=== PATIENT | male | born 1940 | race Caucasian/White ===

== ENCOUNTER 2020-09-11 21:53 | Observation (INO) | payer MEDICARE, OTHER ==
[2020-09-11] MEDS ORDERED: Sodium Chloride 0.9% 1,000 ML IV SCH (22:00)
--- NOTE | 2020-09-11 23:12 | EDM.PDOC ---
ED HPI GENERAL MEDICAL PROBLEM - General Chief Complaint: General Stated Complaint: DIZZINESS Time Seen by Provider: 09/11/20 22:15 Source of Information: Reports: Patient History Limitations: Reports: No Limitations - History of Present Illness INITIAL COMMENTS - FREE TEXT/NARRATIVE: patient presented to the ER due to dizziness. He reports that he was having a dinner at a restaurant, and felt dizziness after standing up and had to sit down. Denies feeling CP. Reports that he is visiting here for Fishing, and think that he is a little dehydrated and didn't get enough liquids in. H/o CAD in the past s/p stents placement. last was 4 weeks ago in [place]. Also h/o pacemaker. Patient reports that it was interrogated a couple weeks ago and was normal. No fever or chills. No SOB or abd pain. No N/V. Dizziness lasted for few seconds before it resolved. Upon arrival of the EMS - HR was initially in mid 30's before it went up to 60. Onset: Today - Related Data Allergies Allergy/AdvReac Type Severity Reaction Status Date / Time No Known Allergies Allergy Verified 09/11/20 21:59 Home Meds: Home Meds Carbidopa/Levodopa [Carbidopa-Levodopa 25-100] 2 tab PO TID 09/11/20 [History] Docusate Sodium 100 mg PO DAILY 09/11/20 [History] Docusate Sodium/Sennosides [Senna Plus] 1 each PO DAILY 09/11/20 [History] Fludrocortisone [Fludrocortisone Acetate] 0.1 mg PO DAILY 09/11/20 [History] Simvastatin 40 mg PO DAILY 09/11/20 [History] oxyCODONE HCl/Acetaminophen [Oxycodone-Acetaminophen 5-325] 1 each PO Q6H 09/11/20 [History] Past Medical History HEENT History: Reports: Impaired Vision Cardiovascular History: Reports: OR, Pacemaker, Stents Genitourinary History: Reports: Prostate Disorder Musculoskeletal History: Reports: Arthritis - Past Surgical History HEENT Surgical History: Reports: Cataract Surgery GI Surgical History: Reports: Colonoscopy Social & Family History - Family History Family Medical History: No Pertinent Family History - Tobacco Use Tobacco Use Status *Q: Former Tobacco User Used Tobacco, but Quit: Yes Month/Year Tobacco Last Used: 2000 Second Hand Smoke Exposure: No - Caffeine Use Caffeine Use: Reports: Soda Caffeine Use Comment: Quit drinking coffee approx 5 months ago. Drink approx 12 pack of soda per weeek - Recreational Drug Use Recreational Drug Use: No ED ROS GENERAL - Review of Systems Review Of Systems: See Below Constitutional: Reports: No Symptoms HEENT: Reports: No Symptoms Respiratory: Reports: No Symptoms Cardiovascular: Reports: Lightheadedness. Denies: Chest Pain GI/Abdominal: Reports: No Symptoms Musculoskeletal: Reports: No Symptoms Neurological: Reports: No Symptoms ED EXAM, GENERAL - Physical Exam Exam: See Below Exam Limited By: No Limitations General Appearance: Alert, No Apparent Distress Head: Atraumatic Respiratory/Chest: No Respiratory Distress, Lungs Clear, No Accessory Muscle Use, Chest Non-Tender Cardiovascular: Normal Peripheral Pulses, No Edema GI/Abdominal: Normal Bowel Sounds, Soft, Non-Tender Extremities: Normal Inspection Neurological: Alert, Oriented Course - Vital Signs Last Recorded V/S: Last Vital Signs Temp 36.3 C 09/11/20 21:54 Pulse 85 09/11/20 21:54 Resp 18 09/11/20 21:54 BP 119/79 09/11/20 21:54 Pulse Ox 97 09/11/20 21:54 - Orders/Labs/Meds Orders: Active Orders 24 hr Category Date Time Status EKG Documentation Completion [RC] ASDIRECTED Care 09/11/20 21:54 Active Sodium Chloride 0.9% [Normal Saline] 1,000 ml Med 09/11/20 22:00 Active IV ASDIRECTED Medication Orders Sodium Chloride (Normal Saline) 1,000 mls @ 500 mls/hr IV ASDIRECTED RUBY Last Admin: 09/11/20 22:59 Dose: 500 mls/hr Documented by: TRACEE Labs: Laboratory Tests 09/11/20 09/11/20 Range/Units 22:00 22:00 WBC 8.6 (4.0-11.0) K/uL RBC 4.83 (4.50-6.50) M/uL Hgb 14.7 (13.0-18.0) g/dL Hct 43.2 (40.0-54.0) % MCV 89 (76-96) fL MCH 30.4 (27.0-32.0) pg MCHC 34.0 (31.0-35.0) g/dL RDW 14.8 (11.0-16.0) % Plt Count 152 (150-400) K/uL MPV 10.2 H (6.0-10.0) fL Sodium 140 (136-145) mmol/L Potassium 4.2 (3.5-5.1) mmol/L Chloride 105 (98-107) mmol/L Carbon Dioxide 29.0 (21.0-32.0) mmol/L Anion Gap 10.2 (5.0-15.0) mmol/L BUN 22 (8-26) mg/dL Creatinine 1.38 H (0.70-1.30) mg/dL Est Cr Clr Drug Dosing 47.64 mL/min Estimated GFR (MDRD) 50 L (>60) MLS/MIN BUN/Creatinine Ratio 15.9 (6-25) Glucose 135 H (74-100) mg/dL Calcium 7.9 L (8.5-10.1) mg/dL Phosphorus 3.2 (2.5-4.9) mg/dL Magnesium 2.2 (1.8-2.4) mg/dL Troponin I < 0.017 (0.000-0.060) ng/mL Meds: Medications Generic Name Dose Route Start Last Admin Trade Name Freq PRN Reason Stop Dose Admin Sodium Chloride 1,000 mls @ 500 mls/hr 09/11/20 22:00 09/11/20 22:59 Normal Saline IV 500 mls/hr ASDIRECTED [facility] Administration - Re-Assessments/Exams Free Text/Narrative Re-Assessment/Exam: upon arrival to the ER - patient was connected to a monitor EKG was obtained - showed e/o paced rhythm and some PVCs. labs were ordered - including CBC, BMP and Trop. Mag and Phosp. Labs were significant for elevation in Cr. Trop was normal, mag and Po4 were WNL.. IVF was given to help with dehydration Departure - Departure Time of Disposition: 23:14 Disposition: Refer to Observation Condition: Fair Clinical Impression: Mild dehydration - Discharge Information *PRESCRIPTION DRUG MONITORING PROGRAM REVIEWED*: Not Applicable *COPY OF PRESCRIPTION DRUG MONITORING REPORT IN PATIENT CATHRYN: Not Applicable Sepsis Event Note (ED) - Evaluation Sepsis Screening Result: No Definite Risk - Focused Exam Vital Signs: Vital Signs Temp Pulse Resp BP Pulse Ox 09/11/20 21:54 36.3 C 85 18 119/79 97 - Problem List & Annotations (1) Mild dehydration SNOMED Code(s): 5490633533170 Code(s): E86.0 - DEHYDRATION Status: Acute Priority: Medium (2) TERRIE (acute kidney injury) SNOMED Code(s): 75351962, 77542797 Code(s): N17.9 - ACUTE KIDNEY FAILURE, UNSPECIFIED Status: Acute Priority: Medium (3) Dizziness on standing SNOMED Code(s): 472497098 Code(s): R42 - DIZZINESS AND GIDDINESS Status: Acute Priority: Medium (4) Pacemaker SNOMED Code(s): 023814266 Code(s): Z95.0 - PRESENCE OF CARDIAC PACEMAKER Status: Chronic - Problem List Review Problem List Initiated/Reviewed/Updated: Yes - My Orders Last 24 Hours: My Active Orders 09/11/20 21:54 EKG Documentation Completion [RC] ASDIRECTED 09/11/20 22:00 Sodium Chloride 0.9% [Normal Saline] 1,000 ml IV ASDIRECTED - Assessment/Plan Last 24 Hours: My Active Orders 09/11/20 21:54 EKG Documentation Completion [RC] ASDIRECTED 09/11/20 22:00 Sodium Chloride 0.9% [Normal Saline] 1,000 ml IV ASDIRECTED Plan: due to the h/o dizziness in the setting of h/o CAD and pacemaker - decision was admit the patient to the floor to observation overnight and tele monitor. - patient will be connected to tele. - morning labs and repeat trop - d/c home in the following day if remains asymptomatic. - resume home meds
[2020-09-11] MEDS ORDERED: Acetaminophen/oxyCODONE 325-5 MG Tab PO SCH (23:30)
[2020-09-12] MEDS ORDERED: Acetaminophen/oxyCODONE 325-5 MG Tab PO PRN (01:10)
[2020-09-12] MEDS ORDERED: Lisinopril 5 MG Tab PO ONE (04:30)
[2020-09-12] MEDS ORDERED: Fludrocortisone 0.1 MG Tab PO SCH (08:00)
[2020-09-12] MEDS ORDERED: Docusate Sodium 100 MG Cap PO SCH (08:00)
[2020-09-12] MEDS ORDERED: Carbidopa/Levodopa 25-100 MG Tab PO SCH (08:00)
[2020-09-12] MEDS ORDERED: Simvastatin 40 MG Tab PO SCH (08:00)
--- NOTE | 2020-09-12 13:21 | PCM.DCSUM1 ---
Discharge Summary - Hospital Course Brief History: patient with a h/o CAD and pacemaker who presented to the ER yesterday due to a single episodes of feeling dizzy upon standing up. In the ER, EKG was WNL - paced, labs no e/o ischemic event, but labs showed elevation In Cr. Patient admitted not drinking enough liquids lately. Visiting here for a fishing trip with friends. Patient HR was noted to be around 60 most of the times, thou it was noted ONCE to drop to mid 30's for few seconds,, no symptoms at that time and just one incidence last night. No more since then. Patient was started on IVF overnight for hydration and was place in a tele bed. Labs were repeated this morning, troponin still WNL, Cr showed improvement and back to normal. Patient reports that he is feeling more energetic than yesterday and has been ambulating without dizziness. It was noted that his systolic BP overnight became elevated to 180-200.. was started on lisinopril 5mg PO - whoch helped reduce it down to 145/89. Patient reports that he is on Florinef and reports that he was started on this to help elevate his BP. Denies any h/o of [place]ow's disease. It was recommend to him to hold on Florinef for now until he follow up with his PCP next week. Diagnosis: Stroke: No - Discharge Data Discharge Date: 09/12/20 Discharge Disposition: Home, Self-Care 01 Condition: Good - Referral to Home Health Primary Care Physician: PCP None - Discharge Diagnosis/Problem(s) (1) Mild dehydration SNOMED Code(s): 4388064071454 ICD Code: E86.0 - DEHYDRATION Status: Acute Priority: Medium Current Visit: No (2) TERRIE (acute kidney injury) SNOMED Code(s): 81648300, 76240576 ICD Code: N17.9 - ACUTE KIDNEY FAILURE, UNSPECIFIED Status: Acute Priority: Medium Current Visit: No (3) Dizziness on standing SNOMED Code(s): 133370134 ICD Code: R42 - DIZZINESS AND GIDDINESS Status: Acute Priority: Medium Current Visit: No (4) Pacemaker SNOMED Code(s): 575627364 ICD Code: Z95.0 - PRESENCE OF CARDIAC PACEMAKER Status: Chronic Current Visit: No (5) Hypertension SNOMED Code(s): 52123278 ICD Code: I10 - ESSENTIAL (PRIMARY) HYPERTENSION Status: Acute Current Visit: Yes Qualifiers: Hypertension type: unspecified Qualified Code(s): I10 - Essential (primary) hypertension - Patient Instructions Diet: Heart Healthy Diet Driving: May Drive Today Showering/Bathing: May Shower - Discharge Plan *PRESCRIPTION DRUG MONITORING PROGRAM REVIEWED*: Not Applicable *COPY OF PRESCRIPTION DRUG MONITORING REPORT IN PATIENT CATHRYN: Not Applicable Prescriptions/Med Rec: lisinopriL [Prinivil] 5 mg PO DAILY 30 Days #30 tablet Home Medications: Home Meds Carbidopa/Levodopa [Carbidopa-Levodopa 25-100] 2 tab PO TID 09/11/20 [History] Docusate Sodium 100 mg PO DAILY 09/11/20 [History] Docusate Sodium/Sennosides [Senna Plus] 1 each PO DAILY 09/11/20 [History] Simvastatin 40 mg PO DAILY 09/11/20 [History] oxyCODONE HCl/Acetaminophen [Oxycodone-Acetaminophen 5-325] 1 each PO Q6H PRN 09/11/20 [History] lisinopriL [Prinivil] 5 mg PO DAILY 30 Days #30 tablet 09/12/20 [Rx] Oxygen Therapy Mode: Room Air Forms: ED Department Discharge Referrals: PCP,None [Primary Care Provider] - - Discharge Summary/Plan Comment DC Time >30 min.: Yes - General Info Date of Service: 09/12/20 Functional Status: Reports: Pain Controlled - Review of Systems General: Reports: No Symptoms HEENT: Reports: No Symptoms Pulmonary: Reports: No Symptoms Cardiovascular: Reports: No Symptoms Gastrointestinal: Reports: No Symptoms Genitourinary: Reports: No Symptoms Musculoskeletal: Reports: No Symptoms Skin: Reports: No Symptoms - Patient Data Vitals - Most Recent: Last Vital Signs Temp 36.7 C 09/12/20 08:00 Pulse 60 09/12/20 08:00 Resp 18 09/12/20 08:00 BP 140/95 H 09/12/20 08:00 Pulse Ox 98 09/12/20 04:00 Weight - Most Recent: 83.064 kg I&O - Last 24 hours: Intake & Output 09/11/20 09/12/20 09/12/20 22:59 06:59 14:59 Intake Total 1000 Balance 1000 Lab Results - Last 24 hrs: Laboratory Results - last 24 hr 09/11/20 09/11/20 09/12/20 Range/Units 22:00 22:00 00:19 WBC 8.6 (4.0-11.0) K/uL RBC 4.83 (4.50-6.50) M/uL Hgb 14.7 (13.0-18.0) g/dL Hct 43.2 (40.0-54.0) % MCV 89 (76-96) fL MCH 30.4 (27.0-32.0) pg MCHC 34.0 (31.0-35.0) g/dL RDW 14.8 (11.0-16.0) % Plt Count 152 (150-400) K/uL MPV 10.2 H (6.0-10.0) fL Sodium 140 (136-145) mmol/L Potassium 4.2 (3.5-5.1) mmol/L Chloride 105 (98-107) mmol/L Carbon Dioxide 29.0 (21.0-32.0) mmol/L Anion Gap 10.2 (5.0-15.0) mmol/L BUN 22 (8-26) mg/dL Creatinine 1.38 H (0.70-1.30) mg/dL Est Cr Clr Drug Dosing 47.64 mL/min Estimated GFR (MDRD) 50 L (>60) MLS/MIN BUN/Creatinine Ratio 15.9 (6-25) Glucose 135 H (74-100) mg/dL Calcium 7.9 L (8.5-10.1) mg/dL Phosphorus 3.2 (2.5-4.9) mg/dL Magnesium 2.2 (1.8-2.4) mg/dL Troponin I < 0.017 (0.000-0.060) ng/mL SARS-CoV-2 RNA (TAM) Negative (NEGATIVE) 09/12/20 Range/Units 08:40 WBC (4.0-11.0) K/uL RBC (4.50-6.50) M/uL Hgb (13.0-18.0) g/dL Hct (40.0-54.0) % MCV (76-96) fL MCH (27.0-32.0) pg MCHC (31.0-35.0) g/dL RDW (11.0-16.0) % Plt Count (150-400) K/uL MPV (6.0-10.0) fL Sodium 141 (136-145) mmol/L Potassium 4.6 (3.5-5.1) mmol/L Chloride 108 H (98-107) mmol/L Carbon Dioxide 28.4 (21.0-32.0) mmol/L Anion Gap 9.2 (5.0-15.0) mmol/L BUN 18 (8-26) mg/dL Creatinine 1.15 (0.70-1.30) mg/dL Est Cr Clr Drug Dosing 57.17 mL/min Estimated GFR (MDRD) > 60 (>60) MLS/MIN BUN/Creatinine Ratio 15.7 (6-25) Glucose 92 D (74-100) mg/dL Calcium 8.3 L (8.5-10.1) mg/dL Phosphorus (2.5-4.9) mg/dL Magnesium (1.8-2.4) mg/dL Troponin I < 0.017 (0.000-0.060) ng/mL SARS-CoV-2 RNA (TAM) (NEGATIVE) Med Orders - Current: Current Medications Carbidopa/Levodopa (Sinemet 25-100 Mg) 2 tab PO TID [facility] Last Admin: 09/12/20 07:49 Dose: 2 tab Documented by: Docusate Sodium (Colace) 100 mg PO DAILY [facility] Last Admin: 09/12/20 07:49 Dose: 100 mg Documented by: Fludrocortisone Acetate (Florinef) 0.1 mg PO DAILY [facility] Last Admin: 09/12/20 07:49 Dose: 0.1 mg Documented by: Lisinopril (Prinivil) 5 mg PO DAILY [facility] Oxycodone/Acetaminophen (Percocet 325-5 Mg) 1 tab PO Q6H PRN PRN Reason: Pain Senna/Docusate Sodium (Senna Plus) 1 tab PO DAILY [facility] Last Admin: 09/12/20 07:49 Dose: 1 tab Documented by: Simvastatin (Zocor) 40 mg PO DAILY [facility] Last Admin: 09/12/20 07:49 Dose: 40 mg Documented by: Discontinued Medications Sodium Chloride (Normal Saline) 1,000 mls @ 500 mls/hr IV ASDIRECTED [facility] Last Admin: 09/11/20 22:59 Dose: 500 mls/hr Documented by: Lisinopril (Prinivil) 5 mg PO ONETIME ONE Stop: 09/12/20 04:31 Last Admin: 09/12/20 04:32 Dose: 5 mg Documented by: Oxycodone/Acetaminophen (Percocet 325-5 Mg) 1 tab PO Q6H [facility] Last Admin: 09/12/20 01:11 Dose: Not Given Documented by: - Exam Quality Assessment: Denies: Supplemental Oxygen General: Reports: Alert, Oriented, Cooperative HEENT: Reports: Pupils Equal Lungs: Reports: Clear to Auscultation, Normal Respiratory Effort Cardiovascular: Reports: Regular Rate. Denies: Irregular Rhythm GI/Abdominal Exam: Normal Bowel Sounds, Soft, Non-Tender Back Exam: Reports: Normal Inspection Neurological: Reports: No New Focal Deficit, Normal Gait Psy/Mental Status: Reports: Alert, Normal Affect
[2020-09-13] MEDS ORDERED: Lisinopril 5 MG Tab PO SCH (08:00)
== END 2020-09-12 14:00 | disposition home or self-care (01) ==
LOC: LB.ED 21:53 → LB.MS 23:22
PROVIDERS: ADMIT Surgery; ATTEND Surgery
DX: R42 Dizziness and giddiness (principal); I25.10 Atherosclerotic heart disease of native coronary artery without angina pectoris; I25.2 Old myocardial infarction; E86.0 Dehydration; N17.9 Acute kidney failure, unspecified; I10 Essential (primary) hypertension; Z20.822 Contact with and (suspected) exposure to COVID-19; Z79.899 Other long term (current) drug therapy; Z95.0 Presence of cardiac pacemaker; Z98.890 Other specified postprocedural states; Z87.891 Personal history of nicotine dependence
CPT/HCPCS: 36415; 80048; 83735; 84100; 84484; 85027; 93005; 99217; 99221; 99285-25; A0425; A0429; A9270-GY; G0378; J7030; U0002